=== PATIENT | female | born 1950 | race Caucasian/White ===

== ENCOUNTER 2024-12-05 06:34 | Emergency (ER) | payer MEDICARE, MEDICAID ==
[~2024-12-05] VITALS: Ht 167.6 cm; Wt 83.5 kg
[2024-12-05 06:53] VITALS: BP 125/66; PULSE 84; RESP 16; TEMP 98.3; O2SAT 95
== END 2024-12-05 11:26 | disposition left against medical advice (07) ==
LOC: ER 06:34
DX: J11.1 Influenza due to unidentified influenza virus with other respiratory manifestations (principal); Z88.2 Allergy status to sulfonamides; Z88.5 Allergy status to narcotic agent; Z20.822 Contact with and (suspected) exposure to COVID-19
CPT/HCPCS: 36415; 71045; 87502; 87503; 87811; 99284